=== PATIENT | male | born 1940 | race Caucasian/White ===

== ENCOUNTER 2024-09-24 17:24 | Inpatient (IN) | payer MEDICARE ==
--- NOTE | 2024-09-24 17:59 | ED ---
General Adult HPI - General Chief complaint: Arrhythmia/Palpitations Stated complaint: AFIB Time Seen by Provider: 09/24/24 17:29 Source: patient, RN notes reviewed Mode of arrival: EMS Limitations: no limitations - History of Present Illness Initial comments: Patient is an 83-year-old male presenting to the emergency department with concern for arrhythmia. Patient was at his doctor's office for routine visit and was advised to come to the emergency department. Patient denies any history of arrhythmia. No history of atrial fibrillation. Patient denies any chest pain. No palpitations. No dyspnea. Patient is symptom-free. - Related Data Home Medications Medication Instructions Recorded Confirmed Aspirin EC [Ecotrin Low Dose] 81 mg PO DAILY 09/24/24 09/24/24 Atorvastatin [Lipitor] 40 mg PO HS 09/24/24 09/24/24 Cholecalciferol (Vitamin D3) 50 mcg PO DAILY 09/24/24 09/24/24 [Vitamin D3 (50 Mcg = 2000 Iu)] Dulaglutide [Trulicity] 3 mg SQ KUMAR 09/24/24 09/24/24 Fluticasone Nasal [place] [Flonase 2 spray EA NOSTRIL DAILY 09/24/24 09/24/24 Nasal [place]] Loratadine [Claritin] 10 mg PO DAILY 09/24/24 09/24/24 Metoprolol Tartrate [Lopressor] 50 mg PO BID 09/24/24 09/24/24 Nitroglycerin Sl Tabs [Nitrostat] 0.4 mg SUBLINGUAL Q5M PRN 09/24/24 09/24/24 metFORMIN HCL 1,000 mg PO BID 09/24/24 09/24/24 Allergies Allergy/AdvReac Type Severity Reaction Status Date / Time No Known Allergies Allergy Verified 09/24/24 17:51 Review of Systems ROS Statement: Those systems with pertinent positive or pertinent negative responses have been documented in the HPI. ROS Other: All systems not noted in ROS Statement are negative. Constitutional: Denies: fever Eyes: Denies: eye pain ENT: Denies: ear pain Respiratory: Denies: dyspnea Cardiovascular: Denies: chest pain, palpitations Gastrointestinal: Denies: abdominal pain Past Medical History Past Medical History: Diabetes Mellitus, Hyperlipidemia History of Any Multi-Drug Resistant Organisms: None Reported Past Surgical History: Heart Catheterization With Stent Additional Past Surgical History / Comment(s): Right Knee Surgery Past Psychological History: No Psychological Hx Reported Smoking Status: Never smoker Past Alcohol Use History: None Reported Past Drug Use History: None Reported General Exam Limitations: no limitations General appearance: alert, in no apparent distress Head exam: Present: normocephalic Eye exam: Present: normal appearance Respiratory exam: Present: normal lung sounds bilaterally Cardiovascular Exam: Present: tachycardia, irregular rhythm GI/Abdominal exam: Present: soft. Absent: tenderness Extremities exam: Present: normal inspection. Absent: pedal edema, calf tenderness Neurological exam: Present: alert Psychiatric exam: Present: normal affect, normal mood Skin exam: Present: normal color Course Vital Signs 09/24/24 09/24/24 09/24/24 17:32 17:42 18:28 Temperature 97.9 F Pulse Rate 116 H 120 H Pulse Rate [ 116 H Right Radial] Respiratory 18 18 Rate Blood Pressure 142/97 139/91 O2 Sat by Pulse 97 100 Oximetry 09/24/24 09/24/24 18:30 19:00 Temperature Pulse Rate 106 H 106 H Pulse Rate [ Right Radial] Respiratory 20 18 Rate Blood Pressure 139/91 130/84 O2 Sat by Pulse 100 97 Oximetry EKG Findings - EKG Results: EKG: interpreted by ERMD (Nonspecific ST-T), normal axis, normal QRS EKG shows: tachycardia, atrial fibrillation Medical Decision Making - Medical Decision Making MDM back was pt. sent in by a medical professional or institution ([facility], GENERAL INTERNAL MEDICINE DOCTOR, urgent care, hospital, or fci...) When possible be specific @ -Patient was sent over from his doctor's office Did you speak to anyone other than the patient for history (EMS, parent, family, police, friend...)? What history was obtained from this source @ -No Did you review nursing and triage notes (agree or disagree)? Why? @ -I reviewed and agree with nursing and triage notes Were old charts reviewed (outside hosp., previous admission, EMS record, old EKG, old radiological studies, urgent care reports/EKG's, fci records)? Report findings @ -I did review EKG sent over by his doctors office with concern for A-fib Differential Diagnosis (chest pain, altered mental status, abdominal pain women, abdominal pain men, vaginal bleeding, weakness, fever, dyspnea, syncope, headache, dizziness, GI bleed, back pain, seizure, CVA, palpatations, mental health, musculoskeletal)? @ -Differential Palpitations Ventricular arrhythmias, atrial arrhythmias, myocardial infarction, anemia, thyrotoxicosis, electrolyte imbalance, hypokalemia, pulmonary embolism, pulmonary disease, drugs, alcohol, anxiety, stress.... This is not meant to be an all-inclusive list. EKG interpreted by me (3pts min.). @ -As above X-rays interpreted by me (1pt min.). @ -X-ray shows no acute process CT interpreted by me (1pt min.). @ -None done U/S interpreted by me (1pt. min.). @ -None done What testing was considered but not performed or refused? (CT, X-rays, U/S, labs)? Why? @ -None What meds were considered but not given or refused? Why? @ -None Did you discuss the management of the patient with other professionals (professionals i.e. , PA, GENERAL INTERNAL MEDICINE DOCTOR, lab, RT, psych nurse, social work supervisor, bricklayer, teacher, medical officer, wrapper caser)? Give summary @ -Case was discussed with practitioner Devora Luong will admit covering hospital call Was smoking cessation discussed for >3mins.? @ -No Was critical care preformed (if so, how long)? @ -31 minutes of critical care time provided Were there social determinants of health that impacted care today? How? (Homelessness, low income, unemployed, alcoholism, drug addiction, transportation, low edu. Level, literacy, decrease access to med. care, nursing home, rehab)? @ -No Was there de-escalation of care discussed even if they declined (Discuss DNR or withdrawal of care, Hospice)? DNR status @ -No What co-morbidities impacted this encounter? (DM, HTN, Smoking, COPD, CAD, Cancer, CVA, ARF, Chemo, Hep., AIDS, mental health diagnosis, sleep apnea, morbid obesity)? @ -None Was patient admitted / discharged? Hospital course, mention meds given and route, prescriptions, significant lab abnormalities, going to OR and other pertinent info. @ -Patient presents with new onset A-fib with RVR. Patient started on Cardizem drip. Heparin drip will be started. Patient updated on plan. Patient to be admitted with cardiac consult. [place] orders written. Consult placed Undiagnosed new problem with uncertain prognosis? @ -No Drug Therapy requiring intensive monitoring for toxicity (Heparin, Nitro, Insulin, Cardizem)? @ -Cardizem drip and heparin drip Were any procedures done? @ -No Diagnosis/symptom? @ -A-fib with RVR Acute, or Chronic, or Acute on Chronic? @ -Acute Uncomplicated (without systemic symptoms) or Complicated (systemic symptoms)? @ -Default Side effects of treatment? @ -No Exacerbation, Progression, or Severe Exacerbation? @ -No Poses a threat to life or bodily function? How? (Chest pain, USA, SC, pneumonia, PE, COPD, DKA, ARF, appy, cholecystitis, CVA, Diverticulitis, Homicidal, Suicidal, threat to staff... and all critical care pts) @ -Threat to cardiac function - Lab Data Result diagrams: 09/24/24 17:58 09/24/24 17:58 Lab Results 09/24/24 09/24/24 09/24/24 Range/Units 17:58 17:58 17:58 WBC 7.0 (3.8-10.6) k/uL RBC 4.33 (4.30-5.90) m/uL Hgb 14.5 (13.0-17.5) gm/dL Hct 43.5 (39.0-53.0) % MCV 100.4 H (80.0-100.0) fL MCH 33.6 (25.0-35.0) pg MCHC 33.4 (31.0-37.0) g/dL RDW 12.9 (11.5-15.5) % Plt Count 179 (150-450) k/uL MPV 8.0 Neutrophils % 75 % Lymphocytes % 15 % Monocytes % 8 % Eosinophils % 1 % Basophils % 0 % Neutrophils # 5.3 (1.3-7.7) k/uL Lymphocytes # 1.0 (1.0-4.8) k/uL Monocytes # 0.5 (0-1.0) k/uL Eosinophils # 0.0 (0-0.7) k/uL Basophils # 0.0 (0-0.2) k/uL PT 11.5 (10.0-12.5) sec INR 1.1 (<1.2) APTT 23.4 (22.0-30.0) sec Sodium 136 L (137-145) mmol/L Potassium 4.7 (3.5-5.1) mmol/L Chloride 106 (98-107) mmol/L Carbon Dioxide 24 (22-30) mmol/L Anion Gap 6 mmol/L BUN 17 (9-20) mg/dL Creatinine 0.59 L (0.66-1.25) mg/dL Est GFR (CKD-EPI)AfAm >90 (>60 ml/min/1.73 sqM) Est GFR (CKD-EPI)NonAf >90 (>60 ml/min/1.73 sqM) Glucose 322 H (74-99) mg/dL Calcium 8.8 (8.4-10.2) mg/dL Magnesium 1.7 (1.6-2.3) mg/dL Total Bilirubin 1.4 H (0.2-1.3) mg/dL AST 24 (17-59) U/L ALT 26 (4-49) U/L Alkaline Phosphatase 61 (38-126) U/L Troponin I (0.000-0.034) ng/mL Total Protein 6.4 (6.3-8.2) g/dL Albumin 3.8 (3.5-5.0) g/dL TSH 1.770 (0.465-4.680) mIU/L Free T4 1.15 (0.78-2.19) ng/dL 09/24/24 Range/Units 17:58 WBC (3.8-10.6) k/uL RBC (4.30-5.90) m/uL Hgb (13.0-17.5) gm/dL Hct (39.0-53.0) % MCV (80.0-100.0) fL MCH (25.0-35.0) pg MCHC (31.0-37.0) g/dL RDW (11.5-15.5) % Plt Count (150-450) k/uL MPV Neutrophils % % Lymphocytes % % Monocytes % % Eosinophils % % Basophils % % Neutrophils # (1.3-7.7) k/uL Lymphocytes # (1.0-4.8) k/uL Monocytes # (0-1.0) k/uL Eosinophils # (0-0.7) k/uL Basophils # (0-0.2) k/uL PT (10.0-12.5) sec INR (<1.2) APTT (22.0-30.0) sec Sodium (137-145) mmol/L Potassium (3.5-5.1) mmol/L Chloride (98-107) mmol/L Carbon Dioxide (22-30) mmol/L Anion Gap mmol/L BUN (9-20) mg/dL Creatinine (0.66-1.25) mg/dL Est GFR (CKD-EPI)AfAm (>60 ml/min/1.73 sqM) Est GFR (CKD-EPI)NonAf (>60 ml/min/1.73 sqM) Glucose (74-99) mg/dL Calcium (8.4-10.2) mg/dL Magnesium (1.6-2.3) mg/dL Total Bilirubin (0.2-1.3) mg/dL AST (17-59) U/L ALT (4-49) U/L Alkaline Phosphatase (38-126) U/L Troponin I <0.012 (0.000-0.034) ng/mL Total Protein (6.3-8.2) g/dL Albumin (3.5-5.0) g/dL TSH (0.465-4.680) mIU/L Free T4 (0.78-2.19) ng/dL Critical Care Time Critical Care Time: Yes Disposition Clinical Impression: Atrial fibrillation, Tachycardia Disposition: ADMITTED IP TO THIS [facility] Is patient prescribed a controlled substance at d/c from ED?: No Referrals: Nonstaff,Physician [REFERRING] - 1-2 days Time of Disposition: 19:36
[2024-09-24 18:05] LABS: Basophils % (A) 0 %; Eosinophils % (A) 1 %; HCT 43.5 % (39.0-53.0); HGB 14.5 gm/dL (13.0-17.5); Lymphocytes % (A) 15 %; MCH 33.6 pg (25.0-35.0); MCHC 33.4 g/dL (31.0-37.0); MCV 100.4 fL (80.0-100.0); Monocytes # (A) 0.5 k/uL (0-1.0); Monocytes % (A) 8 %; Neutrophils # (A) 5.3 k/uL (1.3-7.7); Neutrophils % (A) 75 %; Platelet Count 179 k/uL (150-450); RBC 4.33 m/uL (4.30-5.90); RDW 12.9 % (11.5-15.5)
[2024-09-24 18:14] LABS: INR 1.1 (<1.2); Partial Thromboplastin Time 23.4 sec (22.0-30.0); Prothrombin Time 11.5 sec (10.0-12.5)
[2024-09-24 18:15] LABS: ALT 26 U/L (4-49); AST 24 U/L (17-59); African American GFR (CKD) >90 (>60 ml/min/1.73 sqM); Albumin 3.8 g/dL (3.5-5.0); Alkaline Phosphatase 61 U/L (38-126); Anion Gap 6 mmol/L; Blood Urea Nitrogen 17 mg/dL (9-20); Calcium 8.8 mg/dL (8.4-10.2); Carbon Dioxide 24 mmol/L (22-30); Chloride 106 mmol/L (98-107); Glucose 322 mg/dL (74-99); Magnesium 1.7 mg/dL (1.6-2.3); Non-African American GFR(CKD) >90 (>60 ml/min/1.73 sqM); Sodium 136 mmol/L (137-145); Total Bilirubin 1.4 mg/dL (0.2-1.3); Total Protein 6.4 g/dL (6.3-8.2)
[2024-09-24 18:30] LABS: Potassium 4.7 mmol/L (3.5-5.1)
[2024-09-24] MEDS: DILTIAZEM 125 MG in SODIUM CHLORIDE 0.9% 100 ML IV SCH (18:30)
[2024-09-24 18:32] LABS: T4, Free (Free Thyroxine) 1.15 ng/dL (0.78-2.19)
--- NOTE | 2024-09-24 18:46 | XR ---
EXAMINATION TYPE: XR chest 2V DATE OF EXAM: 09/24/2024 6:08 PM COMPARISON: Dysrhythmia CLINICAL INDICATION: Male, 83 years old with history of dysrhythmia, TECHNIQUE: XR chest 2V view(s) obtained. FINDINGS: The heart size is normal. The pulmonary vasculature is normal. The lungs are clear. There is hyperinflation flattening the diaphragms compatible with COPD IMPRESSION: 1. No acute pulmonary process. 2 COPD [facility], , 09/24/2024 6:43 PM
[2024-09-24] MEDS ORDERED: NALOXONE 0.4 MG/ML 1 ML VIAL IV PRN (19:37)
[2024-09-24 19:51] LABS: Glucose,Whole Blood 198 mg/dL (70-110)
[2024-09-24] MEDS: HEPARIN SOD,PORK IN 0.45% NACL 25,000 UNIT in 0.45% NACL 1 250ML.BAG IV SCH (19:57)
[2024-09-24] MEDS: HEPARIN SODIUM 1,000 UN/ML (10ML VL) IV ONE (19:57)
[2024-09-24] MEDS: METOPROLOL TARTRATE 50 MG TAB PO SCH (21:05)
[2024-09-24] MEDS: FAMOTIDINE 20 MG TAB PO SCH (21:05)
[2024-09-24] MEDS: metFORMIN 500 MG TAB PO SCH (21:05)
[2024-09-24] MEDS: ATORVASTATIN 40 MG TAB PO SCH (21:05)
[2024-09-25 02:06] LABS: Basophils % (A) 0 %; Eosinophils % (A) 0 %; HCT 43.1 % (39.0-53.0); HGB 14.1 gm/dL (13.0-17.5); Lymphocytes # (A) 1.3 k/uL (1.0-4.8); Lymphocytes % (A) 20 %; MCH 32.8 pg (25.0-35.0); MCHC 32.7 g/dL (31.0-37.0); MCV 100.5 fL (80.0-100.0); Mean Platelet Volume 7.6; Monocytes # (A) 0.4 k/uL (0-1.0); Monocytes % (A) 6 %; Neutrophils # (A) 4.7 k/uL (1.3-7.7); Neutrophils % (A) 72 %; Platelet Count 209 k/uL (150-450); RBC 4.29 m/uL (4.30-5.90); RDW 12.6 % (11.5-15.5); WBC 6.5 k/uL (3.8-10.6)
[2024-09-25 02:20] LABS: INR 1.2 (<1.2); Prothrombin Time 12.3 sec (10.0-12.5)
[2024-09-25] MEDS: HEPARIN SODIUM 1,000 UN/ML (10ML VL) IV PRN (04:28)
[2024-09-25] MEDS: LORATADINE 10 MG TAB PO SCH (08:17)
[2024-09-25] MEDS: CHOLECALCIFEROL 25 MCG (1000 IU) TABLET PO SCH (08:18)
[2024-09-25] MEDS: ASPIRIN 81 MG PO SCH (08:18)
[2024-09-25] MEDS: METOPROLOL TARTRATE 25 MG TAB PO SCH (09:46)
[2024-09-25] MEDS: FLUTICASONE NASAL 50MCG/SPRAY 16GM BTL EA NOSTRIL SCH (09:46)
[2024-09-25] MEDS: APIXABAN 5 MG TAB PO SCH (09:50)
--- NOTE | 2024-09-25 10:09 | P.CRDCN ---
History of Present Illness History of present illness: HISTORY OF PRESENT ILLNESS: This is a 83-year-old male with a past medical history significant for coronary artery disease with previous stenting, hypertension, hyperlipidemia, and diabet es. 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 We have been asked to see the patient in consultation for atrial fibrillation. Patient examined at the bedside in the emergency room. Patient states he was at his PCP office yesterday for a routine visit. An EKG was performed revealing atrial fibrillation and the patient was directed to come to the emergency room. The patient currently denies having any symptoms. He denies any chest pain or pressure. He denies any shortness of breath. Denies dizziness or lightheadedness. Denies any palpitations. Patient states he is fairly active on an outpatient basis and helps his son who is a espinoza. He is a non-smoker. The patient does report a history of CAD and states he had a stent placed about 8 years ago in [facility] after undergoing an abnormal stress test. The patient was found to be in atrial fibrillation with RVR. He was started on IV heparin and IV Cardizem. The patient remains in atrial fibrillation at the time of examination with a heart rate around 120. The patient denies any known history of atrial fibrillation. DIAGNOSTICS: - EKG reveals A-fib with RVR. Heart rate 141. - Chest xray negative for acute process. COPD. - Laboratory data: WBC 6.5. Hemoglobin 14.1. Platelet count 209. Sodium 136. Potassium 4.7. BUN 17. Creatinine 0.59. Troponin negative x 3. TSH 1.770. - Current home cardiac medications include Lipitor 40 mg at night, aspirin 81 mg daily, metoprolol tartrate 50 mg twice a day - No previous echocardiogram, stress test, or cardiac catheterization available in EMR for review REVIEW OF SYSTEMS: At the time of my exam: CONSTITUTIONAL: Denies fever or chills. HEENT: Denies blurred vision, vision changes, or eye pain. Denies hemoptysis CARDIOVASCULAR: Denies chest pain. Denies orthopnea. Denies PND. Denies palpitations RESPIRATORY: Denies shortness of breath. GASTROINTESTINAL: Denies abdominal pain. Denies nausea or vomiting. HEMATOLOGIC: Denies bleeding disorders. GENITOURINARY: Denies any blood in urine. SKIN: Denies pruitis. Denies rash. PHYSICAL EXAM: VITAL SIGNS: Reviewed. GENERAL: Well-developed in no acute distress. HEENT: Head is normocephalic. Pupils are equal, round. Sclerae anicteric. Mucous membranes of the mouth are moist. Neck supple. No JVD or thyromegaly LUNGS: Respirations even and unlabored. Lungs essentially clear to auscultation bilaterally. HEART: Tachycardic. Irregular rate and rhythm. S1 and S2 heard. ABDOMEN: Soft. Nondistended. Nontender. EXTREMITIES: Normal range of motion. No clubbing or cyanosis. Peripheral pulses intact. No lower extremity edema NEUROLOGIC: Awake and alert. Oriented x 3. ASSESSMENT: New onset atrial fibrillation with RVR, actual duration unknown as patient was asymptomatic Coronary artery disease with previous stenting of, approximately 8 years ago, details unknown Hypertension Hyperlipidemia Diabetes PLAN: Obtain 2D echo to assess cardiac structure and function Discontinue IV heparin. Begin Eliquis 5 mg twice a day Discontinue IV Cardizem Resume home cardiac medications Increase metoprolol tartrate to 75 mg twice a day TSH checked and within normal limits Continue telemetry monitoring Anticipate discharge home tomorrow pending echo results and if patient's heart rates are well-controlled Further recommendations pending patient course Nurse practitioner note has been reviewed by physician. Signing provider agrees with the documented findings, assessment, and plan of care documented by BRUSHER WARP as a scribe. Past Medical History Past Medical History: Diabetes Mellitus, Hyperlipidemia History of Any Multi-Drug Resistant Organisms: None Reported Past Surgical History: Heart Catheterization With Stent Additional Past Surgical History / Comment(s): Right Knee Surgery Past Psychological History: No Psychological Hx Reported Smoking Status: Never smoker Past Alcohol Use History: None Reported Past Drug Use History: None Reported Medications and Allergies Home Medications Medication Instructions Recorded Confirmed Type Aspirin EC [Ecotrin Low Dose] 81 mg PO DAILY 09/24/24 09/24/24 History Atorvastatin [Lipitor] 40 mg PO HS 09/24/24 09/24/24 History Cholecalciferol (Vitamin D3) 50 mcg PO DAILY 09/24/24 09/24/24 History [Vitamin D3 (50 Mcg = 2000 Iu)] Dulaglutide [Trulicity] 3 mg SQ KUMAR 09/24/24 09/24/24 History Fluticasone Nasal [place] [Flonase 2 spray EA NOSTRIL DAILY 09/24/24 09/24/24 History Nasal [place]] Loratadine [Claritin] 10 mg PO DAILY 09/24/24 09/24/24 History Metoprolol Tartrate [Lopressor] 50 mg PO BID 09/24/24 09/24/24 History Nitroglycerin Sl Tabs [Nitrostat] 0.4 mg SUBLINGUAL Q5M PRN 09/24/24 09/24/24 History metFORMIN HCL 1,000 mg PO BID 09/24/24 09/24/24 History Allergies Allergy/AdvReac Type Severity Reaction Status Date / Time No Known Allergies Allergy Verified 09/24/24 17:51 Physical Exam Vitals: Vital Signs Temp Pulse Pulse Resp BP Pulse Ox 09/25/24 07:26 98.0 F 86 18 116/75 98 09/25/24 04:44 86 18 106/71 98 09/25/24 01:41 92 18 106/70 99 09/24/24 22:48 87 18 109/77 99 09/24/24 21:08 99 18 123/72 98 09/24/24 19:00 106 H 18 130/84 97 09/24/24 18:30 106 H 20 139/91 100 09/24/24 18:28 120 H 18 139/91 100 09/24/24 17:42 116 H 09/24/24 17:32 97.9 F 116 H 18 142/97 97 Intake and Output 09/24/24 09/25/24 09/25/24 22:59 06:59 14:59 Intake Total 69.403 Balance 69.403 Intake: Intake, IV Titration 69.403 Amount Heparin Sod,Pork in 0.45% 69.403 NaCl 25,000 unit In 0.45 % NaCl 1 250ml.bag @ 12 UNITS/KG/HR 8.165 mls/hr IV .Q24H [facility] Rx#: [id number] Other: Weight 68.039 kg Results 09/25/24 01:30 09/24/24 17:58 Cardiac Enzymes 09/24/24 09/24/24 09/24/24 Range/Units 17:58 17:58 21:24 AST 24 (17-59) U/L Troponin I <0.012 <0.012 (0.000-0.034) ng/mL 09/24/24 Range/Units 23:58 AST (17-59) U/L Troponin I <0.012 (0.000-0.034) ng/mL Coagulation 09/24/24 09/25/24 09/25/24 Range/Units 17:58 01:30 01:30 PT 11.5 12.3 (10.0-12.5) sec APTT 23.4 43.0 H (22.0-30.0) sec CBC 09/24/24 09/25/24 Range/Units 17:58 01:30 WBC 7.0 6.5 (3.8-10.6) k/uL RBC 4.33 4.29 L (4.30-5.90) m/uL Hgb 14.5 14.1 (13.0-17.5) gm/dL Hct 43.5 43.1 (39.0-53.0) % Plt Count 179 209 (150-450) k/uL Comprehensive Metabolic Panel 09/24/24 Range/Units 17:58 Sodium 136 L (137-145) mmol/L Potassium 4.7 (3.5-5.1) mmol/L Chloride 106 (98-107) mmol/L Carbon Dioxide 24 (22-30) mmol/L BUN 17 (9-20) mg/dL Creatinine 0.59 L (0.66-1.25) mg/dL Glucose 322 H (74-99) mg/dL Calcium 8.8 (8.4-10.2) mg/dL AST 24 (17-59) U/L ALT 26 (4-49) U/L Alkaline Phosphatase 61 (38-126) U/L Total Protein 6.4 (6.3-8.2) g/dL Albumin 3.8 (3.5-5.0) g/dL Current Medications Generic Name Dose Route Start Last Admin Trade Name Freq PRN Reason Stop Dose Admin Aspirin 81 mg 09/25/24 09:00 09/25/24 08:18 Aspirin 81 Mg PO 81 mg DAILY NURIS Administration Atorvastatin Calcium 40 mg 09/24/24 21:00 09/24/24 21:05 Atorvastatin 40 Mg Tab PO 40 mg HS NURIS Administration Cholecalciferol 50 mcg 09/25/24 09:00 09/25/24 08:18 Cholecalciferol 25 Mcg (1000 Iu) Tablet PO 50 mcg DAILY NURIS Administration Famotidine 20 mg 09/24/24 21:00 09/25/24 08:17 Famotidine 20 Mg Tab PO 20 mg BID NURIS Administration Fluticasone Propionate 2 spray 09/25/24 09:00 Fluticasone Nasal 50mcg/[place] 16gm Btl EA NOSTRIL DAILY NURIS Heparin Sodium (Porcine) 0 unit 09/24/24 19:37 09/25/24 04:28 Heparin Sodium 1,000 Un/Ml (10ml Vl) IV 1,700 unit PER PROTOCOL PRN Administration Low PTT Protocol Diltiazem HCl 125 mg/ Sodium 125 mls @ 5 mls/hr 09/24/24 18:30 09/24/24 18:30 Chloride IV 5 mg/hr .Q24H NURIS 5 mls/hr Administration 5 MG/HR Heparin Sodium/Sodium Chloride 250 mls @ 8.165 mls/hr 09/24/24 19:45 09/25/24 04:27 25,000 unit/ Sodium Chloride IV 14 units/kg/hr .Q24H NURIS 9.525 mls/hr Titration Protocol 12 UNITS/KG/HR Loratadine 10 mg 09/25/24 09:00 09/25/24 08:17 Loratadine 10 Mg Tab PO 10 mg DAILY NURIS Administration Metformin HCl 1,000 mg 09/24/24 21:00 09/25/24 08:16 Metformin 500 Mg Tab PO 1,000 mg BID NURIS Administration Metoprolol Tartrate 50 mg 09/24/24 21:00 09/25/24 08:16 Metoprolol Tartrate 50 Mg Tab PO 50 mg BID NURIS Administration Naloxone HCl 0.2 mg 09/24/24 19:37 Naloxone 0.4 Mg/Ml 1 Ml Vial IV Q2M PRN Opioid Reversal Non-Formulary Medication 3 mg 09/30/24 09:00 Dulaglutide [Trulicity] SQ KUMAR NURIS Intake and Output 09/24/24 09/25/24 09/25/24 22:59 06:59 14:59 Intake Total 69.403 Balance 69.403 Intake: Intake, IV Titration 69.403 Amount Heparin Sod,Pork in 0.45% 69.403 NaCl 25,000 unit In 0.45 % NaCl 1 250ml.bag @ 12 UNITS/KG/HR 8.165 mls/hr IV .Q24H NURIS Rx#: [id number] Other: Weight 68.039 kg 09/25/24 01:30 09/24/24 17:58
--- NOTE | 2024-09-25 22:21 | HP ---
HISTORY AND PHYSICAL CHIEF COMPLAINT: Palpitations. HISTORY OF PRESENT ILLNESS: This is an 83-year-old gentleman with a past medical history of hypertension, hyperlipidemia, history of CAD stent, was having palpitations. The patient was directed to [facility] from the doctor's office. The patient was found to have atrial ablation with fast ventricular rate. The patient was monitored closely. The patient is on Cardizem and heart rate is improved at this time. No chest pain. No palpitations. No fever. PAST MEDICAL HISTORY: Reviewed include diabetes mellitus, hyperlipidemia, history of CAD stent. Rest of the history and rest of the chart is also reviewed. HOME MEDICATIONS: Reviewed include Lopressor. Dose and rest of medications reviewed. ALLERGIES: None. FAMILY HISTORY: No history of heart disease or strokes in the family. SOCIAL HISTORY: No history of smoking or alcohol. REVIEW OF SYSTEMS: Fourteen-point review is negative except as mentioned earlier. PHYSICAL EXAMINATION: VITAL SIGNS: Pulse is 58, irregular, blood pressure 106/67, and respirations 18. HEENT: Conjunctivae normal. NECK: No JVD. CARDIOVASCULAR: S1, S2 regular. Ejection systolic murmur. RESPIRATIONS: Breath sounds diminished at the bases. No rhonchi. No crackles. ABDOMEN: Soft, nontender. LEGS: No edema. NERVOUS SYSTEM: Nonfocal. LABORATORY DATA: Glucose 198. ASSESSMENT: 1. Atrial fibrillation with fast ventricular rate. 2. Diabetes mellitus, type 2. 3. Hyperlipidemia. 4. History of coronary artery disease stent. RECOMMENDATIONS AND DISCUSSION: I recommend to continue current medications, continue symptomatic treatment, Eliquis and increase dose of beta blockers. 2D echo with Doppler and closely follow with Cardiology. Further recommendations to follow. MMODL / IJN: [id number] /
[2024-09-26 06:56] LABS: Basophils % (A) 1 %; Eosinophils % (A) 0 %; HCT 44.3 % (39.0-53.0); HGB 14.6 gm/dL (13.0-17.5); Lymphocytes # (A) 1.1 k/uL (1.0-4.8); Lymphocytes % (A) 20 %; MCH 33.4 pg (25.0-35.0); MCV 101.1 fL (80.0-100.0); Mean Platelet Volume 8.3; Monocytes # (A) 0.3 k/uL (0-1.0); Monocytes % (A) 6 %; Neutrophils # (A) 3.9 k/uL (1.3-7.7); Neutrophils % (A) 72 %; Platelet Count 187 k/uL (150-450); RBC 4.38 m/uL (4.30-5.90); WBC 5.4 k/uL (3.8-10.6)
--- NOTE | 2024-09-26 07:01 | CA ---
Transthoracic Echo Report Name: Jatinder Simon Age: 83 Gender: M : 1940 Exam Date: 09/25/2024 14:36 Exam Location: [facility] Ht (in): 68 Wt (lb): 150 Ordering Physician: Ros Lang Attending/Referring Phys: [id number], Rickey Sewer Line Photo Inspector Ivelisse Pelletier, HERMELINDO Procedure CPT: Indications: LV function, new AF Cardiac Hx: Technical Quality: Fair Contrast 1: Total Dose (mL): Contrast 2: Total Dose (mL): MEASUREMENTS (Male / Female) Normal Values 2D ECHO LV Diastolic Diameter PLAX 4.5 cm 4.2 - 5.9 / 3.9 - 5.3 cm LV Systolic Diameter PLAX 2.7 cm IVS Diastolic Thickness 1.5 cm 0.6 - 1.0 / 0.6 - 0.9 cm LVPW Diastolic Thickness 1.5 cm 0.6 - 1.0 / 0.6 - 0.9 cm LV Relative Wall Thickness 0.7 RV Internal Dim ED PLAX 1.3 cm LA Systolic Diameter LX 3.0 cm 3.0 - 4.0 / 2.7 - 3.8 cm LV Diastolic Volume MOD BP 39.4 cm??? 67 - 155 / 56 - 104 cm??? LV Systolic Volume MOD BP 14.7 cm??? 22 - 58 / 19 - 49 cm??? LV Ejection Fraction MOD BP 62.7 % >= 55 % LV Cardiac Index MOD BP 1202.7 cm???/min???m??? LV Diastolic Volume MOD 4C 40.2 cm??? LV Systolic Volume MOD 4C 13.9 cm??? LV Ejection Fraction MOD 4C 65.4 % LV Cardiac Index MOD 4C 1276.6 cm???/min???m??? LV Diastolic Length 4C 6.8 cm LV Systolic Length 4C 5.8 cm LV Diastolic Volume MOD 2C 39.2 cm??? LV Systolic Volume MOD 2C 14.7 cm??? LV Ejection Fraction MOD 2C 62.4 % LV Cardiac Index MOD 2C 1189.8 cm???/min???m??? LV Diastolic Length 2C 6.8 cm LV Systolic Length 2C 5.4 cm LA Volume 46.2 cm??? 18 - 58 / 22 - 52 cm??? LA Volume Index 25.6 cm???/m??? 16 - 28 cm???/m??? M-MODE Aortic Root Diameter MM 3.6 cm LA Systolic Diameter MM 2.9 cm LA Ao Ratio MM 0.8 AV Cusp Separation MM 1.8 cm DOPPLER MV Area PHT 2.7 cm??? Mitral E Point Velocity 61.4 cm/s Mitral A Point Velocity 81.1 cm/s Mitral E to A Ratio 0.8 MV Deceleration Time 280.3 ms TR Peak Velocity 209.2 cm/s TR Peak Gradient 17.5 mmHg Right Ventricular Systolic Press 22.2 mmHg FINDINGS Left Ventricle Left ventricular ejection fraction is estimated at 60-65%. Moderately increased septal wall thickness. No obvious regional wall motion abnormalities. Left ventricular cavity size normal. Right Ventricle Normal right ventricular size and function. Right ventricular systolic pressure within normal limits. Right Atrium Normal right atrial size. Left Atrium Mild left atrial dilatation. Mitral Valve Structurally normal mitral valve. Mild mitral regurgitation. No mitral stenosis. Aortic Valve Trileaflet aortic valve. No aortic stenosis. No aortic regurgitation. Tricuspid Valve Structurally normal tricuspid valve. Trace to mild tricuspid regurgitation. No tricuspid stenosis. Pulmonic Valve Structurally normal pulmonic valve. No pulmonic stenosis. Trace pulmonic regurgitation. Pericardium No pericardial or pleural effusion. Aorta Aorta at upper limits of normal. CONCLUSIONS Normal biventricular systolic function No significant valvular abnormalities Normal pulmonary artery systolic pressure No pericardial effusion Previewed by: Dr. Velasquez Sanon MD (Electronically Signed) Final Date: 26 September 2024 07:00
[2024-09-26 07:10] LABS: African American GFR (CKD) >90 (>60 ml/min/1.73 sqM); Anion Gap 3 mmol/L; Blood Urea Nitrogen 17 mg/dL (9-20); Carbon Dioxide 30 mmol/L (22-30); Chloride 104 mmol/L (98-107); Glucose 150 mg/dL (74-99); Non-African American GFR(CKD) 88 (>60 ml/min/1.73 sqM); Potassium 4.9 mmol/L (3.5-5.1); Sodium 137 mmol/L (137-145)
[2024-09-26 08:28] VITALS: RESP 17
[2024-09-26 11:09] VITALS: BP 134/76; PULSE 74; TEMP 97.6
--- NOTE | 2024-09-26 12:30 | P.PN ---
Subjective HISTORY OF PRESENT ILLNESS: This is a 83-year-old male with a past medical history significant for coronary artery disease with previous stenting, hypertension, hyperlipidemia, and diabetes. Patient states he used to follow with a highway patrol pilot in [facility] however he no longer practices there and he is scheduled to see a new highway patrol pilot in [place] but he is unsure of the name. We have been asked to see the patient in consultation for atrial fibrillation. Patient examined at the bedside in the emergency room. Patient states he was at his PCP office yesterday for a routine visit. An EKG was performed revealing atrial fibrillation and the patient was directed to come to the emergency room. The patient currently denies having any symptoms. He denies any chest pain or pressure. He denies any shortness of breath. Denies dizziness or lightheadedness. Denies any palpitations. Patient states he is fairly active on an outpatient basis and helps his son who is a espinoza. He is a non-smoker. The patient does report a history of CAD and states he had a stent placed about 8 years ago in [facility] after undergoing an abnormal stress test. The patient was found to be in atrial fibrillation with RVR. He was started on IV heparin and IV Cardizem. The patient remains in atrial fibrillation at the time of examination with a heart rate around 120. The patient denies any known history of atrial fibrillation. DIAGNOSTICS: - EKG reveals A-fib with RVR. Heart rate 141. - Chest xray negative for acute process. COPD. - Laboratory data: WBC 6.5. Hemoglobin 14.1. Platelet count 209. Sodium 136. Potassium 4.7. BUN 17. Creatinine 0.59. Troponin negative x 3. TSH 1.770. - Current home cardiac medications include Lipitor 40 mg at night, aspirin 81 mg daily, metoprolol tartrate 50 mg twice a day - No previous echocardiogram, stress test, or cardiac catheterization available in EMR for review 09/26/2024 Patient examined this morning at the bedside. Patient currently denies chest pain or pressure. He denies shortness of breath. He is maintaining sinus mechanism on the monitor. Vital signs are stable. Echocardiogram completed revealing ejection fraction 60 to 65% with mild MR and trace to mild TR. PHYSICAL EXAM: VITAL SIGNS: Reviewed. GENERAL: Well-developed in no acute distress. HEENT: Head is normocephalic. Pupils are equal, round. Sclerae anicteric. Mucous membranes of the mouth are moist. Neck supple. No JVD or thyromegaly LUNGS: Respirations even and unlabored. Lungs essentially clear to auscultation bilaterally. HEART: Regular rate and rhythm. S1 and S2 heard. ABDOMEN: Soft. Nondistended. Nontender. EXTREMITIES: Normal range of motion. No clubbing or cyanosis. Peripheral pulses intact. No lower extremity edema NEUROLOGIC: Awake and alert. Oriented x 3. ASSESSMENT: New onset atrial fibrillation with RVR, actual duration unknown as patient was asymptomatic, currently maintaining sinus mechanism Coronary artery disease with previous stenting of, approximately 8 years ago, details unknown Hypertension Hyperlipidemia Diabetes PLAN: Continue current cardiac medications Patient is stable for discharge home today from a cardiac standpoint Patient to follow-up postdischarge with his primary highway patrol pilot Nurse practitioner note has been reviewed by physician. Signing provider agrees with the documented findings, assessment, and plan of care documented by GUT SNATCHER as a scribe. Objective - Vital Signs Vital signs: Vital Signs Temp 97.6 F 09/26/24 11:08 Pulse 74 09/26/24 11:08 Resp 17 09/26/24 11:08 BP 134/76 09/26/24 11:08 Pulse Ox 99 09/26/24 11:08 FiO2 Intake & Output 09/25/24 09/26/24 09/26/24 18:59 06:59 18:59 Intake Total 118 20 490 Balance 118 20 490 Weight 68.039 kg 66.6 kg Intake: IV 20 10 Invasive Line 1 20 10 Oral 118 480 Other: Voiding Method Toilet Toilet # Voids 1 - Labs CBC & Chem 7: 09/26/24 06:27 09/26/24 06:27 Labs: Abnormal Lab Results - Last 24 Hours (Table) 09/26/24 09/26/24 Range/Units 06:27 06:27 MCV 101.1 H (80.0-100.0) fL Glucose 150 H (74-99) mg/dL
--- NOTE | 2024-09-29 12:28 | P.DS ---
Providers Date of admission: 09/24/24 19:38 Expected date of discharge: 09/26/24 Attending physician: Varun Sosa Consults: 09/24/24 19:37 Consult Physician Routine Consulting Provider: Velasquez Sanon Consult Reason/Comments: afib w rvr Do you want consulting provider notified?: Yes Primary care physician: Stated None Hospital Course: Final diagnosis Atrial fibrillation with RVR Diabetes mellitus, type II History of hyperlipidemia History of coronary artery disease with stent GI prophylaxis DVT prophylaxis Full code Discharge disposition Patient is being discharged in a stable condition with guarded prognosis to home. Patient will follow-up with Dr. Hickman in the outpatient setting upon discharge. Patient is to continue with current medications and outpatient foll ow-up with cardiology as scheduled. Total time taken is greater than 35 minutes. Hospital course This is a 83-year-old male who was recently admitted with atrial fibrillation with RVR being closely monitored. Cardiology following patient was started on Eliquis and also metoprolol was increased. Patient is currently rate controlled reports to feeling much improved and extremely anxious to go home. Patient has been cleared by cardiology. Please refer to cardiology notes for further HPI and patient will follow-up with his shingles roofer outpatient. Recommend outpatient follow-up with primary care provider as well to discuss medication adjustments. Currently no reports of chest pain, shortness of breath, or palpitations. Patient is afebrile. No reports of nausea or vomiting and patient is tolerating diet. Patient will be discharged home today. Guarded prognosis Physical exam: Gen: This is a 83-year-old male who is awake, alert and oriented x 2, well- developed, elderly appearing HEENT: Head is atraumatic, normocephalic. Pupils equal, round. Sclerae is anicteric. NECK: Supple. No JVD. No lymphadenopathy. No thyromegaly. LUNGS: Diminished breath sounds bilaterally otherwise clear to auscultation. No wheezes or rhonchi. No intercostal retractions. HEART: S1, S2 are muffled, rate controlled ABDOMEN: Soft. Bowel sounds are present. No masses. No tenderness. EXTREMITIES: No pedal edema. No calf tenderness. NEUROLOGICAL: Patient is awake, alert and oriented x3. Cranial nerves 2 through 12 are grossly intact. Please refer to medication reconciliation sheet for a list of medications. The impression and plan of care has been dictated by Julita Jyoti, Nurse Practitioner as directed. Dr. Ian MD I have performed a history and examination and MDM of this patient, discussed the same with the dictator, and agree with the dictator's assessment and plan as written ,documented as a scribe. Based on total visit time, I have performed more than 50% of the visit. Patient Condition at Discharge: Stable Plan - Discharge Summary Discharge Rx Participant: Yes New Discharge Prescriptions: New Metoprolol Tartrate [Lopressor] 75 mg PO BID #180 tab Apixaban [Eliquis] 5 mg PO BID #60 tab Continue Loratadine [Claritin] 10 mg PO DAILY Cholecalciferol (Vitamin D3) [Vitamin D3 (50 Mcg = 2000 Iu)] 50 mcg PO DAILY metFORMIN HCL 1,000 mg PO BID Fluticasone Nasal [place] [Flonase Nasal [place]] 2 spray EA NOSTRIL DAILY Aspirin EC [Ecotrin Low Dose] 81 mg PO DAILY Nitroglycerin Sl Tabs [Nitrostat] 0.4 mg SUBLINGUAL Q5M PRN PRN Reason: Chest Pain Dulaglutide [Trulicity] 3 mg SQ KUMAR Atorvastatin [Lipitor] 40 mg PO HS Discontinued Metoprolol Tartrate [Lopressor] 50 mg PO BID Discharge Medication List Aspirin EC [Ecotrin Low Dose] 81 mg PO DAILY 09/24/24 [History] Atorvastatin [Lipitor] 40 mg PO HS 09/24/24 [History] Cholecalciferol (Vitamin D3) [Vitamin D3 (50 Mcg = 2000 Iu)] 50 mcg PO DAILY 09/24/24 [History] Dulaglutide [Trulicity] 3 mg SQ KUMAR 09/24/24 [History] Fluticasone Nasal [place] [Flonase Nasal [place]] 2 spray EA NOSTRIL DAILY 09/24/24 [History] Loratadine [Claritin] 10 mg PO DAILY 09/24/24 [History] Nitroglycerin Sl Tabs [Nitrostat] 0.4 mg SUBLINGUAL Q5M PRN 09/24/24 [History] metFORMIN HCL 1,000 mg PO BID 09/24/24 [History] Apixaban [Eliquis] 5 mg PO BID #60 tab 09/26/24 [Rx] Metoprolol Tartrate [Lopressor] 75 mg PO BID #180 tab 09/26/24 [Rx] Follow up Appointment(s)/Referral(s): Renee Chakraborty MD [STAFF PHYSICIAN] - 1 Week (office will call you with an appointment if you choose to follow with them,. ) Eusebio Hickman MD [REFERRING] - 1 Week (please call to schedule.) Michael To MD [REFERRING] - 1 Week Patient Instructions/Handouts: A-fib (Atrial Fibrillation) (DC) Activity/Diet/Wound Care/Special Instructions: Activity limited until follow-up Follow-up with your shingles roofer Follow-up with primary care provider on discharge Continue taking medications as prescribed Discharge Disposition: HOME SELF-CARE
[2024-09-30] MEDS ORDERED: NON FORMULARY DRUG (Dulaglutide [Trulicity] 3 MG/0.5 ML Each) SQ SCH (09:00)
== END 2024-09-26 14:07 | disposition home or self-care (01) | DRG 310 ==
LOC: EC 17:24 → 3SCARD 19:38
PROVIDERS: ADMIT Hospitalist; ATTEND Hospitalist
DX: I48.91 Unspecified atrial fibrillation (principal); E11.9 Type 2 diabetes mellitus without complications; I10 Essential (primary) hypertension; J44.9 Chronic obstructive pulmonary disease, unspecified; I25.10 Atherosclerotic heart disease of native coronary artery without angina pectoris; E78.5 Hyperlipidemia, unspecified; Z95.5 Presence of coronary angioplasty implant and graft; Z79.84 Long term (current) use of oral hypoglycemic drugs; Z79.899 Other long term (current) drug therapy; Z79.85 Long-term (current) use of injectable non-insulin antidiabetic drugs; Z79.82 Long term (current) use of aspirin
CPT/HCPCS: 36415; 71046; 80048; 80053; 83735; 84439; 84443; 84481; 84484; 85025; 85610; 85730; 93005; 93306; 96365; 96366; 96368; 96375; 99285